=== PATIENT | female | born 1965 | race Caucasian/White ===

== ENCOUNTER 2018-06-20 19:56 | Emergency (ER) | payer MEDICAID ==
[~2018-06-20] VITALS: Ht 154.9 cm; Wt 48.0 kg
[2018-06-20 20:00] VITALS: BP 115/45
[2018-06-20] MEDS ORDERED: TRAM50TA2 PO (22:02)
[2018-06-20] MEDS ORDERED: IBUP-1985 PO (22:02)
== END 2018-06-20 22:13 | disposition home or self-care (01) ==
LOC: ER 19:56
DX: M25.532 Pain in left wrist (principal); Z88.6 Allergy status to analgesic agent; Z88.8 Allergy status to other drugs, medicaments and biological substances; W18.30XA Fall on same level, unspecified, initial encounter; Y93.51 Activity, roller skating (inline) and skateboarding; Y92.89 Other specified places as the place of occurrence of the external cause; Y99.8 Other external cause status
CPT/HCPCS: 29125; 73090; 99283

== ENCOUNTER 2018-06-23 10:29 | Emergency (ER) | payer MEDICAID ==
[~2018-06-23] VITALS: Ht 154.9 cm; Wt 58.6 kg
[~2018-06-23 10:29] MED LIST: IBUP-1985 PO; TRAM50TA2 PO
[2018-06-23 12:35] VITALS: BP 132/91
== END 2018-06-23 12:36 | disposition home or self-care (01) ==
LOC: ER 10:29
DX: S60.212A Contusion of left wrist, initial encounter (principal); Z88.8 Allergy status to other drugs, medicaments and biological substances; Z88.6 Allergy status to analgesic agent; Z79.899 Other long term (current) drug therapy; W18.39XA Other fall on same level, initial encounter; Y93.89 Activity, other specified; Y92.89 Other specified places as the place of occurrence of the external cause; Y99.8 Other external cause status
CPT/HCPCS: 29125; 73100; 99284

== ENCOUNTER 2018-06-30 09:06 | Outpatient (CLI) | payer MEDICAID ==
[2018-06-30 09:06] VITALS: BP 149/100
[~2018-06-30 09:06] MED LIST changes: -TRAM50TA2 PO
== END 2018-06-30 09:45 | disposition home or self-care (01) ==
LOC: ORTHO 09:06
PROVIDERS: ATTEND Nurse Practitioner Family
DX: S52.612A Displaced fracture of left ulna styloid process, initial encounter for closed fracture (principal); Z72.89 Other problems related to lifestyle; Z79.899 Other long term (current) drug therapy; Z88.8 Allergy status to other drugs, medicaments and biological substances; W19.XXXA Unspecified fall, initial encounter; Y93.89 Activity, other specified; Y92.89 Other specified places as the place of occurrence of the external cause; Y99.8 Other external cause status
CPT/HCPCS: 99213; A4590

== ENCOUNTER 2018-07-13 10:05 | Outpatient (CLI) | payer MEDICAID ==
[2018-07-13 09:51] VITALS: BP 144/95
== END 2018-07-13 10:24 | disposition home or self-care (01) ==
LOC: ORTHO 10:05
PROVIDERS: ATTEND Nurse Practitioner Family
DX: S52.592D Other fractures of lower end of left radius, subsequent encounter for closed fracture with routine healing (principal); S52.612D Displaced fracture of left ulna styloid process, subsequent encounter for closed fracture with routine healing; Z60.2 Problems related to living alone; Z88.5 Allergy status to narcotic agent; X58.XXXD Exposure to other specified factors, subsequent encounter
CPT/HCPCS: 73110; 99213; A4590

== ENCOUNTER 2018-07-16 18:27 | Emergency (ER) | payer MEDICAID ==
[~2018-07-16] VITALS: Ht 154.9 cm; Wt 55.5 kg
[2018-07-16] MEDS ORDERED: tranexamic acid 100mg/ml inj. TP ONE (19:00)
[2018-07-16] MEDS ORDERED: oxymetazoline 15 ML nasal spray NS ONE (19:00)
[2018-07-16] MEDS ORDERED: tranexamic acid 100mg/ml inj. IV ONE (19:25)
[2018-07-16] MEDS ORDERED: LORazepam 2 mg/ml vial IV ONE (19:30)
--- NOTE | 2018-07-16 19:50 | NUR ---
pt with stable vs and reports feeling a little better now that she has been given ativan iv. txa infusion of 550 mg started. boyfriend at bedside and is supportive and helpful and appropriate. awiating dr. islas to put afrin and txa in nostrils.
[2018-07-16] MEDS ORDERED: ondansetron/PF 4mg/2ml inj IM ONE (20:05)
[2018-07-16] MEDS ORDERED: ondansetron/PF 4mg/2ml inj IV ONE (20:10)
[2018-07-16 20:38] LABS: BASOPHILS % (AUTO) 0.1 % (0-1); EOSINOPHILS % (AUTO) 0.1 % (0-6); HEMATOCRIT 32.3 % (35.0-45.0); HEMOGLOBIN 11.1 g/dl (12.0-16.0); LYMPHOCYTES # (AUTO) 0.3 X10'3 (1.1-4.8); MEAN CORPUSCULAR HEMOGLOBIN 30.3 PG (27.0-31.0); MEAN CORPUSCULAR HGB CONC 34.3 g/dL (33.0-36.5); MEAN CORPUSCULAR VOLUME 88.2 FL (78-98); MEAN PLATELET VOLUME 6.5 FL (7.4-10.4); MONOCYTES # (AUTO) 0.6 X10'3 (0-0.9); MONOCYTES % (AUTO) 4.4 % (2-12); NEUTROPHILS # (AUTO) 12.5 X10'3 (1.8-7.7); NEUTROPHILS % (AUTO) 93.4 % (42-75); PLATELET COUNT 354 X10'3 (140-440); RED BLOOD COUNT 3.66 X10'6 (4.20-5.60); RED CELL DISTRIBUTION WIDTH 13.7 % (11.5-14.5); WHITE BLOOD COUNT 13.4 X10'3 (4.5-11.0)
[2018-07-16 20:39] LABS: ALANINE AMINOTRANSFERASE 47 U/L (12-78); ALBUMIN 3.7 G/DL (3.4-5.0); ALBUMIN/GLOBULIN RATIO 1.3 (1.1-1.5); ALKALINE PHOSPHATASE 64 IU/L (46-116); ANION GAP 10 (8-16); ASPARTATE AMINO TRANSFERASE 27 U/L (10-37); BILIRUBIN,TOTAL 0.4 MG/DL (0.1-1.0); BLOOD UREA NITROGEN 13 MG/DL (7-18); CALCIUM 9.2 MG/DL (8.5-10.1); CHLORIDE 98 MMOL/L (99-107); CREATININE 0.62 MG/DL (0.40-0.90); GLUCOSE 177 MG/DL (70-104); POTASSIUM 3.6 MMOL/L (3.5-5.1); SODIUM 133 MMOL/L (135-145); TOTAL CARBON DIOXIDE 24.8 MMOL/L (24-32); TOTAL PROTEIN 6.5 G/DL (6.4-8.2); eGFR > 90 ML/MIN
--- NOTE | 2018-07-16 21:47 | NUR ---
dr islas at bedside talking with pt about discharge and management of any bleeding thats may restart. pt's boyfriend at bedside during dc instruction. pt with stable vs.
[2018-07-16 21:48] VITALS: BP 104/72
== END 2018-07-16 22:19 | disposition home or self-care (01) ==
LOC: ER 18:27
DX: R04.0 Epistaxis (principal); Z88.8 Allergy status to other drugs, medicaments and biological substances
CPT/HCPCS: 36415; 80053; 85025; 93005; 96374; 96375; 99284; J2060; J2405

== ENCOUNTER 2018-07-30 09:46 | Outpatient (CLI) | payer MEDICAID | END 2018-07-30 10:32 | disposition home or self-care (01) | LOC: ORTHO 09:46 | PROVIDERS: ATTEND Nurse Practitioner Family | DX: S52.592D Other fractures of lower end of left radius, subsequent encounter for closed fracture with routine healing (principal); S52.612D Displaced fracture of left ulna styloid process, subsequent encounter for closed fracture with routine healing; M79.89 Other specified soft tissue disorders; Z88.6 Allergy status to analgesic agent; Z60.2 Problems related to living alone; W19.XXXD Unspecified fall, subsequent encounter | CPT/HCPCS: 73110; 99213; A4590 ==

== ENCOUNTER 2018-08-13 09:33 | Outpatient (CLI) | payer MEDICAID ==
[2018-08-13 09:35] VITALS: BP 126/72
== END 2018-08-13 10:15 | disposition home or self-care (01) ==
LOC: ORTHO 09:33
PROVIDERS: ATTEND Nurse Practitioner Family
DX: S52.592D Other fractures of lower end of left radius, subsequent encounter for closed fracture with routine healing (principal); Z88.6 Allergy status to analgesic agent; Z60.2 Problems related to living alone; W19.XXXD Unspecified fall, subsequent encounter
CPT/HCPCS: 73110; 99213

== ENCOUNTER 2018-09-02 14:43 | Outpatient (CLI) | payer MEDICAID | END 2018-09-02 15:48 | disposition home or self-care (01) | LOC: ORTHO 14:43 | PROVIDERS: ATTEND Orthopaedic Surgery | DX: S52.592D Other fractures of lower end of left radius, subsequent encounter for closed fracture with routine healing (principal); S52.612D Displaced fracture of left ulna styloid process, subsequent encounter for closed fracture with routine healing; F17.200 Nicotine dependence, unspecified, uncomplicated; X58.XXXD Exposure to other specified factors, subsequent encounter | CPT/HCPCS: 73110; 99213 ==

== ENCOUNTER 2018-09-30 13:05 | Outpatient (CLI) | payer MEDICAID ==
[2018-09-30 12:58] VITALS: BP 147/98
== END 2018-09-30 13:57 | disposition home or self-care (01) ==
LOC: ORTHO 13:05
PROVIDERS: ATTEND Orthopaedic Surgery
DX: S52.592D Other fractures of lower end of left radius, subsequent encounter for closed fracture with routine healing (principal); F17.200 Nicotine dependence, unspecified, uncomplicated; X58.XXXD Exposure to other specified factors, subsequent encounter
CPT/HCPCS: 73110; 99213

== ENCOUNTER 2019-02-25 11:53 | Outpatient (CLI) | payer MEDICAID | END 2019-02-25 13:45 | disposition home or self-care (01) | LOC: ORTHO 11:53 | PROVIDERS: ATTEND Orthopaedic Surgery | DX: S63.592D Other specified sprain of left wrist, subsequent encounter (principal); X58.XXXD Exposure to other specified factors, subsequent encounter | CPT/HCPCS: 73110; G0463 ==

== ENCOUNTER 2020-09-21 01:15 | Emergency (ER) | payer MEDICAID ==
[~2020-09-21] VITALS: Ht 157.5 cm; Wt 63.6 kg
[2020-09-21] MEDS ORDERED: aspirin 81mg tab.chew PO ONE (01:30)
[2020-09-21] MEDS ORDERED: nitroGLYCERIN 0.4mg SUBLingual tab SL PRN (01:30)
[2020-09-21] MEDS ORDERED: LORazepam 1 MG tablet PO ONE (01:35)
[2020-09-21 01:42] LABS: BASOPHILS % (AUTO) 0.7 % (0-1); EOSINOPHILS # (AUTO) 0.1 X10'3 (0-0.9); EOSINOPHILS % (AUTO) 1.4 % (0-6); HEMATOCRIT 42.2 % (35.0-45.0); HEMOGLOBIN 14.5 g/dl (12.0-16.0); LYMPHOCYTES # (AUTO) 0.8 X10'3 (1.1-4.8); LYMPHOCYTES % (AUTO) 15.5 % (21-51); MEAN CORPUSCULAR HEMOGLOBIN 32.2 PG (27.0-31.0); MEAN CORPUSCULAR HGB CONC 34.4 g/dL (33.0-36.5); MEAN CORPUSCULAR VOLUME 93.7 FL (78-98); MEAN PLATELET VOLUME 7.6 FL (7.4-10.4); MONOCYTES # (AUTO) 0.9 X10'3 (0-0.9); MONOCYTES % (AUTO) 17.1 % (2-12); NEUTROPHILS # (AUTO) 3.5 X10'3 (1.8-7.7); NEUTROPHILS % (AUTO) 65.3 % (42-75); PLATELET COUNT 137 X10'3 (140-440); RED BLOOD COUNT 4.51 X10'6 (4.20-5.60); RED CELL DISTRIBUTION WIDTH 12.7 % (11.5-14.5); WHITE BLOOD COUNT 5.4 X10'3 (4.5-11.0)
[2020-09-21 01:52] LABS: ALANINE AMINOTRANSFERASE 224 U/L (12-78); ALBUMIN 4.6 G/DL (3.4-5.0); ALBUMIN/GLOBULIN RATIO 1.3 (1.1-1.5); ALKALINE PHOSPHATASE 95 IU/L (46-116); ANION GAP 13 (8-16); ASPARTATE AMINO TRANSFERASE 264 U/L (10-37); BILIRUBIN,TOTAL 1.1 MG/DL (0.1-1.0); BLOOD UREA NITROGEN 9 MG/DL (7-18); BUN/CREATININE RATIO 18.4 (6.6-38.0); CALCIUM 9.1 MG/DL (8.5-10.1); CHLORIDE 89 MMOL/L (99-107); CREATININE 0.49 MG/DL (0.40-0.90); GLUCOSE 98 MG/DL (70-104); POTASSIUM 3.5 MMOL/L (3.5-5.1); SODIUM 127 MMOL/L (135-145); TOTAL CARBON DIOXIDE 24.7 MMOL/L (24-32); TOTAL PROTEIN 8.2 G/DL (6.4-8.2); eGFR > 90 ML/MIN
[2020-09-21 02:02] LABS: PLATELET ESTIMATE DECREASED; TOTAL CELLS COUNTED 100
[2020-09-21 06:29] VITALS: BP 149/71
== END 2020-09-21 06:43 | disposition home or self-care (01) ==
LOC: ER 01:16
DX: R07.89 Other chest pain (principal); M25.512 Pain in left shoulder; F41.9 Anxiety disorder, unspecified; Z98.890 Other specified postprocedural states; Z72.89 Other problems related to lifestyle; Z60.2 Problems related to living alone; Z88.8 Allergy status to other drugs, medicaments and biological substances; Z79.899 Other long term (current) drug therapy
CPT/HCPCS: 36415; 71045; 80053; 83880; 84484; 85007; 85025; 93005; 99285

== ENCOUNTER 2020-10-25 11:17 | Outpatient (CLI) | payer MEDICAID ==
[2020-10-25 12:03] LABS: BASOPHILS % (AUTO) 0.7 % (0-1); EOSINOPHILS # (AUTO) 0.1 X10'3 (0-0.9); EOSINOPHILS % (AUTO) 1.1 % (0-6); HEMATOCRIT 41.9 % (35.0-45.0); HEMOGLOBIN 14.2 g/dl (12.0-16.0); LYMPHOCYTES # (AUTO) 1.3 X10'3 (1.1-4.8); LYMPHOCYTES % (AUTO) 23.1 % (21-51); MEAN CORPUSCULAR HEMOGLOBIN 31.4 PG (27.0-31.0); MEAN CORPUSCULAR HGB CONC 33.9 g/dL (33.0-36.5); MEAN CORPUSCULAR VOLUME 92.9 FL (78-98); MEAN PLATELET VOLUME 8.1 FL (7.4-10.4); MONOCYTES # (AUTO) 0.6 X10'3 (0-0.9); MONOCYTES % (AUTO) 10.7 % (2-12); NEUTROPHILS # (AUTO) 3.5 X10'3 (1.8-7.7); NEUTROPHILS % (AUTO) 64.4 % (42-75); PLATELET COUNT 267 X10'3 (140-440); RED BLOOD COUNT 4.51 X10'6 (4.20-5.60); RED CELL DISTRIBUTION WIDTH 12.2 % (11.5-14.5); WHITE BLOOD COUNT 5.4 X10'3 (4.5-11.0)
[2020-10-25 13:17] LABS: PLATELET ESTIMATE NORMAL; TOTAL CELLS COUNTED 100
== END 2020-10-25 23:59 | disposition home or self-care (01) ==
LOC: LAB 11:17
PROVIDERS: ATTEND Nurse Practitioner
DX: Z00.01 Encounter for general adult medical examination with abnormal findings (principal); D69.6 Thrombocytopenia, unspecified; R74.8 Abnormal levels of other serum enzymes
CPT/HCPCS: 85007; 85025

== ENCOUNTER 2020-12-27 09:28 | Emergency (ER) | payer MEDICAID ==
[~2020-12-27] VITALS: Ht 157.5 cm; Wt 56.0 kg
--- NOTE | 2020-12-27 10:39 | NUR ---
pt was evaluated by Tony ALMAZAN at triage
[2020-12-27 10:48] LABS: BASOPHILS % (AUTO) 0.5 % (0-1); EOSINOPHILS % (AUTO) 0.1 % (0-6); HEMATOCRIT 40.8 % (35.0-45.0); LYMPHOCYTES # (AUTO) 0.3 X10'3 (1.1-4.8); LYMPHOCYTES % (AUTO) 5.2 % (21-51); MEAN CORPUSCULAR HEMOGLOBIN 31.1 PG (27.0-31.0); MEAN CORPUSCULAR HGB CONC 34.4 g/dL (33.0-36.5); MEAN CORPUSCULAR VOLUME 90.4 FL (78-98); MEAN PLATELET VOLUME 6.6 FL (7.4-10.4); MONOCYTES % (AUTO) 14.8 % (2-12); NEUTROPHILS # (AUTO) 5.2 X10'3 (1.8-7.7); NEUTROPHILS % (AUTO) 79.4 % (42-75); PLATELET COUNT 142 X10'3 (140-440); RED BLOOD COUNT 4.51 X10'6 (4.20-5.60); RED CELL DISTRIBUTION WIDTH 14.7 % (11.5-14.5); WHITE BLOOD COUNT 6.5 X10'3 (4.5-11.0)
[2020-12-27 10:55] LABS: PARTIAL THROMBOPLASTIN TIME 31 SECONDS (22-32)
[2020-12-27 10:56] LABS: ALANINE AMINOTRANSFERASE 346 U/L (12-78); ALBUMIN 4.7 G/DL (3.4-5.0); ALBUMIN/GLOBULIN RATIO 1.1 (1.1-1.5); ALKALINE PHOSPHATASE 432 IU/L (46-116); ANION GAP 11 (8-16); ASPARTATE AMINO TRANSFERASE 326 U/L (10-37); BILIRUBIN,TOTAL 0.7 MG/DL (0.1-1.0); BLOOD UREA NITROGEN 5 MG/DL (7-18); BUN/CREATININE RATIO 8.6 (6.6-38.0); CALCIUM 9.5 MG/DL (8.5-10.1); CHLORIDE 92 MMOL/L (99-107); CREATININE 0.58 MG/DL (0.40-0.90); GLUCOSE 217 MG/DL (70-104); POTASSIUM 3.8 MMOL/L (3.5-5.1); SODIUM 131 MMOL/L (135-145); TOTAL CARBON DIOXIDE 27.6 MMOL/L (24-32); TOTAL PROTEIN 8.9 G/DL (6.4-8.2); eGFR > 90 ML/MIN
[2020-12-27 11:55] LABS: LIPASE 95 U/L (73-393)
[2020-12-27] MEDS ORDERED: LORazepam 2 mg/ml vial IM ONE (15:25)
[2020-12-27] MEDS ORDERED: normal saline 1000ml 1,000 ML IV ONE (15:25)
[2020-12-27] MEDS ORDERED: iohexol 300mg/ml 100ml inj. ONE ×2 (15:34→17:03)
[2020-12-27 16:56] LABS: CLARITY,URINE CLEAR (Clear); COLOR,URINE STRAW (Yellow); GLUCOSE, URINE NEGATIVE (Neg); KETONES,URINE NEGATIVE (Neg); LEUKOCYTE ESTERASE ,URINE NEGATIVE (Neg); NITRITES, URINE NEGATIVE (Neg); OCCULT BLOOD,URINE TRACE-INTACT (Neg); PROTEIN,URINE NEGATIVE (Neg); UROBILINOGEN,URINE 0.2 E.U/dL (0.2-1.0)
[2020-12-27 16:57] LABS: UA COLLECTION TYPE CLN CATCH MIDSTREAM
[2020-12-27 17:07] LABS: URINE AMPHETAMINE SCREEN NEGATIVE (Neg); URINE BARBITUATE SCREEN NEGATIVE (Neg); URINE BENZODIAZEPINES SCREEN POSITIVE (Neg); URINE CANNABINOID SCREEN NEGATIVE (Neg); URINE COCAINE SCREEN NEGATIVE (Neg); URINE METHADONE SCREEN NEGATIVE (Neg); URINE OPIATE SCREEN NEGATIVE (Neg); URINE PHENCYCLIDINE SCREEN NEGATIVE (Neg)
[2020-12-27 17:14] LABS: MUCUS STRANDS FEW /LPF (Neg)
[2020-12-27 17:15] LABS: SQUAMOUS EPITHELIAL CELL,UR FEW /LPF (FEW)
[2020-12-27 17:16] LABS: BACTERIA,URINE FEW /HPF (Neg)
[2020-12-27 17:17] LABS: WBC,URINE 0-4 /HPF (0-4)
[2020-12-27 19:50] VITALS: BP 148/97
== END 2020-12-27 19:54 | disposition home or self-care (01) ==
LOC: ER 09:28
DX: K76.0 Fatty (change of) liver, not elsewhere classified (principal); R74.01 Elevation of levels of liver transaminase levels; R19.7 Diarrhea, unspecified; R10.13 Epigastric pain; R42 Dizziness and giddiness; R11.2 Nausea with vomiting, unspecified; H53.8 Other visual disturbances; F41.9 Anxiety disorder, unspecified; Z98.890 Other specified postprocedural states; Z72.89 Other problems related to lifestyle; Z60.2 Problems related to living alone; Z88.8 Allergy status to other drugs, medicaments and biological substances; Z79.899 Other long term (current) drug therapy; W11.XXXA Fall on and from ladder, initial encounter; Y93.89 Activity, other specified; Y92.89 Other specified places as the place of occurrence of the external cause; Y99.8 Other external cause status
CPT/HCPCS: 36415; 70450; 71045; 74177; 76700; 80053; 80305; 81001; 83690; 85025; 85610; 85730; 93005; 96360; 96361; 96372; 99285; J2060; J7030; Q9967

== ENCOUNTER 2020-12-29 00:35 | Emergency (ER) | payer MEDICAID ==
[~2020-12-29] VITALS: Ht 157.5 cm; Wt 61.3 kg
[2020-12-29] MEDS ORDERED: normal saline 1000ML IV soln IVB ONE (00:45)
[2020-12-29 01:15] LABS: BASOPHILS # (AUTO) 0.1 X10'3 (0-0.2); EOSINOPHILS # (AUTO) 0.1 X10'3 (0-0.9); EOSINOPHILS % (AUTO) 1.3 % (0-6); HEMATOCRIT 34.7 % (35.0-45.0); LYMPHOCYTES # (AUTO) 0.8 X10'3 (1.1-4.8); LYMPHOCYTES % (AUTO) 14.5 % (21-51); MEAN CORPUSCULAR HEMOGLOBIN 31.2 PG (27.0-31.0); MEAN CORPUSCULAR HGB CONC 34.5 g/dL (33.0-36.5); MEAN CORPUSCULAR VOLUME 90.4 FL (78-98); MEAN PLATELET VOLUME 6.7 FL (7.4-10.4); MONOCYTES % (AUTO) 19.2 % (2-12); NEUTROPHILS # (AUTO) 3.5 X10'3 (1.8-7.7); PLATELET COUNT 184 X10'3 (140-440); RED BLOOD COUNT 3.84 X10'6 (4.20-5.60); RED CELL DISTRIBUTION WIDTH 14.4 % (11.5-14.5); WHITE BLOOD COUNT 5.5 X10'3 (4.5-11.0)
[2020-12-29 01:32] LABS: ALANINE AMINOTRANSFERASE 259 U/L (12-78); ALBUMIN 3.7 G/DL (3.4-5.0); ALBUMIN/GLOBULIN RATIO 1.1 (1.1-1.5); ALKALINE PHOSPHATASE 268 IU/L (46-116); ANION GAP 10 (8-16); ASPARTATE AMINO TRANSFERASE 278 U/L (10-37); BILIRUBIN,TOTAL 0.8 MG/DL (0.1-1.0); BLOOD UREA NITROGEN 3 MG/DL (7-18); CALCIUM 8.5 MG/DL (8.5-10.1); CHLORIDE 92 MMOL/L (99-107); ETHANOL < 0.010 GM/DL (0.0-0.010); GLUCOSE 168 MG/DL (70-104); POTASSIUM 3.2 MMOL/L (3.5-5.1); SODIUM 128 MMOL/L (135-145); TOTAL CARBON DIOXIDE 26.1 MMOL/L (24-32); eGFR > 90 ML/MIN
[2020-12-29 02:01] LABS: BANDS% (MANUAL) 2 % (0-10); LYMPHOCYTES % (MANUAL) 18 % (21-51); NEUTROPHILS % (MANUAL) 65 % (42-75); TOTAL CELLS COUNTED 100
[2020-12-29 02:02] LABS: EOSINOPHILS % (MANUAL) 1 % (0-6); MONOCYTES % (MANUAL) 14 % (2-12); PLATELET ESTIMATE NORMAL
[2020-12-29] MEDS ORDERED: morphine 4 MG/ML inj SYRINge IV ONE (02:55)
[2020-12-29] MEDS ORDERED: ondansetron/PF 4mg/2ml inj IV ONE ×2 (02:55→04:40)
[2020-12-29 03:15] LABS: URINE BARBITUATE SCREEN NEGATIVE (Neg); URINE BENZODIAZEPINES SCREEN NEGATIVE (Neg); URINE CANNABINOID SCREEN NEGATIVE (Neg); URINE COCAINE SCREEN NEGATIVE (Neg); URINE METHADONE SCREEN NEGATIVE (Neg); URINE OPIATE SCREEN NEGATIVE (Neg); URINE PHENCYCLIDINE SCREEN NEGATIVE (Neg)
[2020-12-29] MEDS ORDERED: acetaminophen 325mg tablet PO PRN ×2 (03:20)
[2020-12-29] MEDS ORDERED: magnesium 4gm in 100ml NS 100 ML IV PRN (03:20)
[2020-12-29] MEDS ORDERED: bisacodyl 10mg suppository rectal RC PRN (03:20)
[2020-12-29] MEDS ORDERED: acetaminophen 650mg rectal suppository RC PRN (03:20)
[2020-12-29] MEDS ORDERED: magnesium 2GM in 50ml NS 50 ML IV PRN (03:20)
[2020-12-29] MEDS ORDERED: ondansetron 4mg rapidly disintigrating tab PO PRN (03:20)
[2020-12-29] MEDS ORDERED: magnesium hydroxide 30ml (MOM) UD suspension PO PRN (03:20)
[2020-12-29] MEDS ORDERED: magnesium Cl slow-release 64mg tablet PO PRN (03:20)
[2020-12-29] MEDS ORDERED: potassium Cl 40MEQ/1/2NS 520ml 520 ML IV PRN ×2 (03:20)
[2020-12-29] MEDS ORDERED: HYDROcodone/acetaminophen 5mg/325mg tablet PO PRN (03:20)
[2020-12-29] MEDS ORDERED: potassium Cl 20 mEq SR tablet PO PRN ×2 (03:20)
[2020-12-29] MEDS ORDERED: mag hydrox/Alum hydrox/simeth 30ml oral suspension PO PRN (03:20)
[2020-12-29] MEDS ORDERED: diphenhydrAMINE 50 mg/ml inj IV PRN (03:20)
[2020-12-29] MEDS ORDERED: diphenhydrAMINE 25mg capsule PO PRN (03:20)
[2020-12-29] MEDS ORDERED: NO HOME MEDS (03:27)
[2020-12-29 03:32] LABS: URINE AMPHETAMINE SCREEN NEGATIVE (Neg)
[2020-12-29] MEDS: normal saline 1000ml 1,000 ML IV SCH ×2 (03:37→12:19)
[2020-12-29 03:49] LABS: HEMOGLOBIN A1C 5.2 % (4.5-6.2)
[2020-12-29 03:50] LABS: CLARITY,URINE CLEAR (Clear); COLOR,URINE YELLOW (Yellow); GLUCOSE, URINE NEGATIVE (Neg); KETONES,URINE NEGATIVE (Neg); LEUKOCYTE ESTERASE ,URINE NEGATIVE (Neg); NITRITES, URINE NEGATIVE (Neg); UROBILINOGEN,URINE 0.2 E.U/dL (0.2-1.0)
[2020-12-29 03:55] LABS: PARTIAL THROMBOPLASTIN TIME 27 SECONDS (22-32)
[2020-12-29 04:04] LABS: OCCULT BLOOD,URINE SMALL (Neg); PROTEIN,URINE NEGATIVE (Neg)
[2020-12-29 04:08] LABS: UA COLLECTION TYPE CLN CATCH MIDSTREAM
[2020-12-29 04:10] LABS: BACTERIA,URINE NONE SEEN /HPF (Neg); SQUAMOUS EPITHELIAL CELL,UR NONE SEEN /LPF (FEW); WBC,URINE 0-4 /HPF (0-4)
[2020-12-29 04:13] LABS: D-DIMER 0.64 MG/L FEU (0-0.50)
[2020-12-29] MEDS ORDERED: HYDROcodone/acetaminophen 10/325mg tab PO ONE (04:40)
[2020-12-29 05:49] LABS: CREATINE KINASE 305 U/L (26-192); LACTATE DEHYDROGENASE 283 U/L (81-234); MAGNESIUM 1.7 MG/DL (1.5-2.4); PHOSPHORUS 3.3 MG/DL (2.3-4.5); TROPONIN I < 0.04 NG/ML (0.0-0.05)
[2020-12-29] MEDS: pantoprazole 40mg Tablet.DR PO SCH (07:30)
[2020-12-29] MEDS ORDERED: LORazepam 2 mg/ml vial IM SCH (08:00)
[2020-12-29] MEDS: docusate sod 100mg capsule PO SCH ×2 (08:00→21:14)
[2020-12-29] MEDS: K and/or MAG REPLACEMENT MC SCH ×2 (08:00→20:00)
[2020-12-29] MEDS: heparin, porcine 5000 units/ml vial SQ SCH ×2 (08:32→20:00)
[2020-12-29] MEDS ORDERED: LORazepam 2 mg/ml vial IV PRN (09:25)
[2020-12-29] MEDS: ondansetron/PF 4mg/2ml inj IV PRN (10:20)
[2020-12-29 10:29] LABS: ALBUMIN 3.9 G/DL (3.4-5.0); ANION GAP 10 (8-16); BLOOD UREA NITROGEN 3 MG/DL (7-18); BUN/CREATININE RATIO 6.1 (6.6-38.0); CALCIUM 8.2 MG/DL (8.5-10.1); CHLORIDE 95 MMOL/L (99-107); CREATININE 0.49 MG/DL (0.40-0.90); GLUCOSE 134 MG/DL (70-104); POTASSIUM 3.7 MMOL/L (3.5-5.1); SODIUM 130 MMOL/L (135-145); TOTAL CARBON DIOXIDE 25.4 MMOL/L (24-32); eGFR > 90 ML/MIN
[2020-12-29] MEDS: Potassium Cl inj 20 MEQ in normal saline 1000ml 990 ML IV SCH (15:15)
[2020-12-29] MEDS ORDERED: GADOTERATE MEGLUMINE 7.5 MMOL/15 ML VIAL IV ONE (16:35)
[2020-12-29] MEDS: morphine 2 MG/ML inj. syringe IV PRN (16:40)
[2020-12-29] MEDS ORDERED: temazepam 15mg capsule PO PRN (21:00)
--- NOTE | 2020-12-29 21:00 | NUR ---
Pt constantly repeating the same statements and asking the same questions. Pt consistently making comments about how she can't remember anything. Yet patient can remember asking me for pain medicine 45 minutes ago and that I hadn't brought it yet. After waiting a little while longer, pt flagged me as I walked by to ask if she had met me yet. Yet I had previously been in her room a dozen times. Upon leaving, pt stated "Don't forget about my pain medicine, Werner."
[2020-12-30] MEDS: normal saline 1000ml 1,000 ML IV SCH (00:18)
[2020-12-30] MEDS: morphine 2 MG/ML inj. syringe IV PRN (02:22)
[2020-12-30] MEDS: ondansetron/PF 4mg/2ml inj IV PRN (02:22)
--- NOTE | 2020-12-30 02:26 | NUR ---
patient taken to the restroom at this time, patient unsteady on her feet. pain and nausea meds requested see jul. patient back in bed resting.
--- NOTE | 2020-12-30 03:42 | NUR ---
Pt now sleeping with no complaints voiced or reported. + rise and fall of chest noted.
[2020-12-30] MEDS: Potassium Cl inj 20 MEQ in normal saline 1000ml 990 ML IV SCH (05:33)
[2020-12-30 07:15] VITALS: BP 137/80
[2020-12-30] MEDS: K and/or MAG REPLACEMENT MC SCH (07:30)
[2020-12-30] MEDS: docusate sod 100mg capsule PO SCH (07:30)
[2020-12-30] MEDS: pantoprazole 40mg Tablet.DR PO SCH (07:30)
[2020-12-30] MEDS: heparin, porcine 5000 units/ml vial SQ SCH (07:31)
[2020-12-30] MEDS ORDERED: HYDROcodone/acetaminophen 5mg/325mg tablet PO PRN (08:40)
[2020-12-30] MEDS ORDERED: levetiracetam 250mg tablet PO SCH (08:40)
[2020-12-30 09:32] LABS: ALANINE AMINOTRANSFERASE 220 U/L (12-78); ALBUMIN 3.8 G/DL (3.4-5.0); ALBUMIN/GLOBULIN RATIO 1.1 (1.1-1.5); ALKALINE PHOSPHATASE 224 IU/L (46-116); ANION GAP 6 (8-16); ASPARTATE AMINO TRANSFERASE 148 U/L (10-37); BILIRUBIN,TOTAL 0.6 MG/DL (0.1-1.0); BLOOD UREA NITROGEN 2 MG/DL (7-18); BUN/CREATININE RATIO 4.1 (6.6-38.0); CALCIUM 8.9 MG/DL (8.5-10.1); CHLORIDE 103 MMOL/L (99-107); CHOL/HDL RATIO 1.8 (0.00-4.99); CHOLESTEROL 188 MG/DL (0-200); CREATININE 0.49 MG/DL (0.40-0.90); GLUCOSE 130 MG/DL (70-104); HDL CHOLESTEROL 105 MG/DL (35-60); LDL CHOLESTEROL 61 MG/DL (50-100); MAGNESIUM 2.2 MG/DL (1.5-2.4); POTASSIUM 3.4 MMOL/L (3.5-5.1); SODIUM 140 MMOL/L (135-145); TOTAL CARBON DIOXIDE 30.8 MMOL/L (24-32); TOTAL PROTEIN 7.4 G/DL (6.4-8.2); TRIGLYCERIDES 33 MG/DL (20-135); eGFR > 90 ML/MIN
[2020-12-30 09:46] LABS: BASOPHILS % (AUTO) 0.5 % (0-1); EOSINOPHILS # (AUTO) 0.1 X10'3 (0-0.9); EOSINOPHILS % (AUTO) 0.9 % (0-6); HEMATOCRIT 36.2 % (35.0-45.0); HEMOGLOBIN 12.3 g/dl (12.0-16.0); LYMPHOCYTES # (AUTO) 0.6 X10'3 (1.1-4.8); LYMPHOCYTES % (AUTO) 9.7 % (21-51); MEAN CORPUSCULAR HEMOGLOBIN 31.7 PG (27.0-31.0); MEAN CORPUSCULAR VOLUME 93.2 FL (78-98); MEAN PLATELET VOLUME 6.8 FL (7.4-10.4); MONOCYTES # (AUTO) 1.1 X10'3 (0-0.9); MONOCYTES % (AUTO) 17.6 % (2-12); NEUTROPHILS # (AUTO) 4.6 X10'3 (1.8-7.7); NEUTROPHILS % (AUTO) 71.3 % (42-75); PLATELET COUNT 213 X10'3 (140-440); RED BLOOD COUNT 3.88 X10'6 (4.20-5.60); WHITE BLOOD COUNT 6.4 X10'3 (4.5-11.0)
[2020-12-30] MEDS ORDERED: LEVE250T PO (10:47)
--- NOTE | 2020-12-31 11:21 | NUR ---
PT CALLED STATING THAT HER RX FOR KEPPRA WAS CALLED INTO [facility]. PT STATES THAT THE PHARMACY IS CLOSED TODAY AND SHE NEEDS HER MEDICATION. ALLAN ALMAZAN NOTIFIED AND APPROVED THAT RX BE CALLED INTO [facility] ON [address]. PER REQUESTED BY PT, KEPPRA 250MG, 500MG PO BID, DISPENCE 60 WAS CALLED TO [facility] ON [address], [place].
== END 2020-12-30 11:59 | disposition home or self-care (01) ==
LOC: ER 00:36 → UNDOADMIN 03:24 → ED HOLD 03:24 → UNDODISIN 12-30 11:56
DX: R56.9 Unspecified convulsions (principal); E87.1 Hypo-osmolality and hyponatremia; E87.6 Hypokalemia; R79.89 Other specified abnormal findings of blood chemistry; F41.9 Anxiety disorder, unspecified; Z88.5 Allergy status to narcotic agent; Z79.899 Other long term (current) drug therapy
CPT/HCPCS: 36415; 70450; 70553; 71045; 72040; 74182; 80048; 80053; 80061; 80305; 80320; 81001; 82140; 82550; 82977; 83036; 83615; 83735; 83880; 84100; 84443; 84484; 85007; 85025; 85379; 85610; 85730; 93005; 95816; 96361; 96372; 96374; 96375; 96376; 99285; A9575; J1644; J2270; J2405; J3480; J7030; G0378

== ENCOUNTER 2021-12-31 20:00 | Inpatient (IN) | payer MEDICAID ==
[~2021-12-31] VITALS: Ht 157.5 cm; Wt 61.4 kg
[~2021-12-31 20:00] MED LIST changes: -IBUP-1985 PO; +LEVE250T PO
[2021-12-31 21:56] LABS: BASOPHILS % (AUTO) 0.5 % (0-1); EOSINOPHILS % (AUTO) 0.4 % (0-6); HEMATOCRIT 28.9 % (35.0-45.0); HEMOGLOBIN 9.7 g/dl (12.0-16.0); LYMPHOCYTES # (AUTO) 0.6 X10'3 (1.1-4.8); LYMPHOCYTES % (AUTO) 6.7 % (21-51); MEAN CORPUSCULAR HEMOGLOBIN 30.6 PG (27.0-31.0); MEAN CORPUSCULAR HGB CONC 33.7 g/dL (33.0-36.5); MEAN CORPUSCULAR VOLUME 90.7 FL (78-98); MEAN PLATELET VOLUME 6.4 FL (7.4-10.4); MONOCYTES # (AUTO) 1.5 X10'3 (0-0.9); MONOCYTES % (AUTO) 17.5 % (2-12); NEUTROPHILS # (AUTO) 6.5 X10'3 (1.8-7.7); NEUTROPHILS % (AUTO) 74.9 % (42-75); PLATELET COUNT 420 X10'3 (140-440); RED BLOOD COUNT 3.18 X10'6 (4.20-5.60); RED CELL DISTRIBUTION WIDTH 16.2 % (11.5-14.5); WHITE BLOOD COUNT 8.7 X10'3 (4.5-11.0)
[2021-12-31 22:32] LABS: ALANINE AMINOTRANSFERASE 27 U/L (12-78); ALBUMIN 3.4 G/DL (3.4-5.0); ALBUMIN/GLOBULIN RATIO 0.9 (1.1-1.5); ALKALINE PHOSPHATASE 130 IU/L (46-116); ANION GAP 8 (8-16); ASPARTATE AMINO TRANSFERASE 20 U/L (10-37); BILIRUBIN,TOTAL 0.6 MG/DL (0.1-1.0); BLOOD UREA NITROGEN 6 MG/DL (7-18); CALCIUM 8.8 MG/DL (8.5-10.1); CHLORIDE 95 MMOL/L (99-107); GLUCOSE 115 MG/DL (70-104); SODIUM 127 MMOL/L (135-145); TOTAL CARBON DIOXIDE 23.9 MMOL/L (24-32); TOTAL PROTEIN 7.3 G/DL (6.4-8.2); eGFR > 90 ML/MIN
[2021-12-31 22:50] LABS: ANISOCYTOSIS 1+; PLATELET ESTIMATE NORMAL; TOTAL CELLS COUNTED 100
[2021-12-31 22:51] LABS: HYPOCHROMASIA 1+
[2021-12-31] MEDS ORDERED: vancomycin/NS 1 GM ADD-VANTAGE 250 ML IV ONE (23:35)
[2021-12-31] MEDS ORDERED: iohexol 350MG/ML 100ml bottle IV ONE (23:42)
[2022-01-01] MEDS ORDERED: morphine 2 MG/ML inj. syringe IV ONE (00:30)
[2022-01-01] MEDS ORDERED: LORazepam 1 MG tablet PO ONE (00:30)
[2022-01-01] MEDS ORDERED: morphine 2 MG/ML inj. syringe IV PRN ×2 (00:40→10:40)
[2022-01-01] MEDS ORDERED: ondansetron/PF 4mg/2ml inj IV PRN (00:40)
[2022-01-01] MEDS ORDERED: ALPR1TAB2 PO (00:57)
[2022-01-01] MEDS: normal saline 1000ml 1,000 ML IV SCH ×2 (02:06→11:01)
[2022-01-01] MEDS: morphine 2 MG/ML inj. syringe IV PRN ×2 (03:45→07:50)
--- NOTE | 2022-01-01 05:40 | NUR ---
RECEIVED PT FROM ER VIA [facility] FOLLOWING VERBAL REPORT FROM VANESSA. ASSUMED CARE OF PT
--- NOTE | 2022-01-01 06:21 | NUR ---
Patient in room PCU 3013. I have received report from Kamila WASHINGTON and had the opportunity to ask questions and assume patient care.Patient is resting in bed in no acute distress.
--- NOTE | 2022-01-01 06:26 | NUR ---
Problems reprioritized. Patient report given, questions answered & plan of care reviewed with KIRSTEN.
[2022-01-01 07:00] VITALS: BP 105/53
[2022-01-01 07:49] LABS: BASOPHILS % (AUTO) 0.4 % (0-1); EOSINOPHILS % (AUTO) 0.6 % (0-6); HEMATOCRIT 28.1 % (35.0-45.0); HEMOGLOBIN 9.3 g/dl (12.0-16.0); LYMPHOCYTES # (AUTO) 0.4 X10'3 (1.1-4.8); LYMPHOCYTES % (AUTO) 5.4 % (21-51); MEAN CORPUSCULAR HEMOGLOBIN 30.2 PG (27.0-31.0); MEAN CORPUSCULAR HGB CONC 33.2 g/dL (33.0-36.5); MEAN CORPUSCULAR VOLUME 91.1 FL (78-98); MEAN PLATELET VOLUME 6.5 FL (7.4-10.4); MONOCYTES # (AUTO) 1.4 X10'3 (0-0.9); MONOCYTES % (AUTO) 17.6 % (2-12); NEUTROPHILS # (AUTO) 5.9 X10'3 (1.8-7.7); PLATELET COUNT 410 X10'3 (140-440); RED BLOOD COUNT 3.09 X10'6 (4.20-5.60); RED CELL DISTRIBUTION WIDTH 16.3 % (11.5-14.5); WHITE BLOOD COUNT 7.7 X10'3 (4.5-11.0)
[2022-01-01 07:59] LABS: ALANINE AMINOTRANSFERASE 23 U/L (12-78); ALBUMIN/GLOBULIN RATIO 0.9 (1.1-1.5); ALKALINE PHOSPHATASE 110 IU/L (46-116); ANION GAP 10 (8-16); ASPARTATE AMINO TRANSFERASE 16 U/L (10-37); BILIRUBIN,TOTAL 0.6 MG/DL (0.1-1.0); BLOOD UREA NITROGEN 4 MG/DL (7-18); CALCIUM 8.6 MG/DL (8.5-10.1); CHLORIDE 105 MMOL/L (99-107); GLUCOSE 111 MG/DL (70-104); POTASSIUM 3.7 MMOL/L (3.5-5.1); SODIUM 138 MMOL/L (135-145); TOTAL CARBON DIOXIDE 23.2 MMOL/L (24-32); TOTAL PROTEIN 6.5 G/DL (6.4-8.2); eGFR > 90 ML/MIN
[2022-01-01 08:17] LABS: ANISOCYTOSIS 1+; PLATELET ESTIMATE NORMAL; TOTAL CELLS COUNTED 100
[2022-01-01 08:18] LABS: HYPOCHROMASIA 1+; POLYCHROMASIA FEW
[2022-01-01 10:00] VITALS: BP 126/63
[2022-01-01] MEDS ORDERED: HYDROcodone/acetaminophen 10/325mg tab PO PRN (10:40)
[2022-01-01] MEDS ORDERED: HYDROmorphone 2mg tablet PO PRN (10:40)
[2022-01-01] MEDS: HYDROmorphone 1 mg/ml syringe IV PRN ×4 (11:01→23:57)
[2022-01-01] MEDS: cephalexin 500mg capsule PO SCH ×2 (11:49→16:08)
[2022-01-01] MEDS ORDERED: ALPR1TAB7 PO (13:35)
--- NOTE | 2022-01-01 14:50 | NUR ---
Page Sent promotional table spacer PAGER ID: [phone] MESSAGE: [id number] [place]. PT would still like drain placed. Dr. Hansen is not going to do anything at this point since her surgeon will take care of it. Are we keeping this patient or DC her and can you order the drain? [phone]
[2022-01-01 15:00] VITALS: BP 135/69
[2022-01-01] MEDS: ceFAZolin/D5W- 1GM premix 50 ML IV SCH ×2 (16:08→23:57)
--- NOTE | 2022-01-01 17:52 | NUR ---
Page Sent promotional table spacer PAGER ID: [phone] MESSAGE: [phone] [place]. CASTRO the patient's surgeon is having her transferred down to the [facility] in [place] as soon as there is a bed. [email or web address] (151 character message out of a maximum of [phone])
[2022-01-01 18:00] VITALS: BP 117/54
--- NOTE | 2022-01-01 18:35 | NUR ---
Problems reprioritized. Patient report given, questions answered & plan of care reviewed with Rylee WASHINGTON
[2022-01-01] MEDS ORDERED: ALPRAZolam 0.5mg tablet PO PRN (21:00)
[2022-01-01 22:00] VITALS: BP 145/75
[2022-01-02] MEDS: normal saline 1000ml 1,000 ML IV SCH (00:02)
[2022-01-02 02:00] VITALS: BP 151/47
--- NOTE | 2022-01-02 02:45 | NUR ---
Sonia from transport center called. Informed this RN of bed availability at [facility]. Patient will be accepted to Room 347 Bed 2. Accepting Doctor is Dr. Gonzalez. Number to call report to RN is [phone]
--- NOTE | 2022-01-02 03:25 | NUR ---
Spoke to Ehsan from [facility]. ETA to [facility] is [address] [facility] is 0600 am.
--- NOTE | 2022-01-02 03:27 | NUR ---
Sherrill from transport center called. Informed her of ETA.
--- NOTE | 2022-01-02 03:30 | NUR ---
Report called to FELIX Wood at [facility]. All questions answered & plan of care reviewed.
[2022-01-02] MEDS: HYDROmorphone 1 mg/ml syringe IV PRN (05:06)
--- NOTE | 2022-01-02 05:15 | NUR ---
Reported off to RN or [facility]. All belongings sent with patient. IV intact. PRN pain medication administered prior to transfer per patient request as ordered.
== END 2022-01-02 05:30 | disposition short-term general hospital (02) | DRG 813 ==
LOC: ER 20:01 → ED HOLD 01-01 00:42 → PCU 3S 01-01 05:42
PROVIDERS: ADMIT Internal Medicine; ATTEND Internal Medicine
DX: L76.34 Postprocedural seroma of skin and subcutaneous tissue following other procedure (principal); F41.9 Anxiety disorder, unspecified; L76.22 Postprocedural hemorrhage of skin and subcutaneous tissue following other procedure; N64.89 Other specified disorders of breast; Z20.822 Contact with and (suspected) exposure to COVID-19; Y83.8 Other surgical procedures as the cause of abnormal reaction of the patient, or of later complication, without mention of misadventure at the time of the procedure; Z60.2 Problems related to living alone; G47.00 Insomnia, unspecified; M35.00 Sjogren syndrome, unspecified; N64.4 Mastodynia; Z91.040 Latex allergy status; Z88.8 Allergy status to other drugs, medicaments and biological substances; Y92.89 Other specified places as the place of occurrence of the external cause
CPT/HCPCS: 36415; 71045; 71260; 80053; 83605; 84145; 85007; 85025; 87040; 87081; 87811; 99285; A6253; A6449; G0378; J0690; J1170; J2270; J3370; J7030; Q9967

== ENCOUNTER 2023-02-18 13:10 | Emergency (ER) | payer MEDICAID ==
[~2023-02-18] VITALS: Ht 157.5 cm; Wt 61.0 kg
[~2023-02-18 13:10] MED LIST changes: +ALPR1TAB7 PO; -LEVE250T PO
[2023-02-18 13:13] VITALS: BP 138/80; PULSE 100; RESP 16; O2SAT 95
[2023-02-18] MEDS ORDERED: NAPR-56 PO (15:40)
[2023-02-18 16:00] VITALS: TEMP 97.8
== END 2023-02-18 16:01 | disposition home or self-care (01) ==
LOC: ER 13:11
DX: M25.511 Pain in right shoulder (principal); M25.562 Pain in left knee; Z98.82 Breast implant status; Z98.890 Other specified postprocedural states; Z88.8 Allergy status to other drugs, medicaments and biological substances; Z91.040 Latex allergy status; W19.XXXA Unspecified fall, initial encounter; Y93.89 Activity, other specified; Y92.89 Other specified places as the place of occurrence of the external cause; Y99.8 Other external cause status
CPT/HCPCS: 73030; 73564; 99284

== ENCOUNTER 2024-01-07 17:04 | Emergency (ER) | payer MEDICAID, OTHER ==
[~2024-01-07] VITALS: Ht 157.5 cm; Wt 65.8 kg
[2024-01-07] MEDS: ketorolac trometh 15mg/ml vial 15 MG/ML ML IM ONE (20:06)
[2024-01-07 20:23] VITALS: BP 124/64; PULSE 70; RESP 16; TEMP 97.6; O2SAT 98
== END 2024-01-07 20:26 | disposition home or self-care (01) ==
LOC: ER 17:05
DX: S09.90XA Unspecified injury of head, initial encounter (principal); S19.9XXA Unspecified injury of neck, initial encounter; F41.9 Anxiety disorder, unspecified; Z88.0 Allergy status to penicillin; Z91.040 Latex allergy status; Z79.899 Other long term (current) drug therapy; V89.2XXA Person injured in unspecified motor-vehicle accident, traffic, initial encounter; Y93.89 Activity, other specified; Y92.89 Other specified places as the place of occurrence of the external cause; Y99.8 Other external cause status
CPT/HCPCS: 70450; 72125; 73564; 96372; 99285; J1885

== ENCOUNTER 2024-03-26 08:10 | Emergency (ER) | payer BC, OTHER ==
[~2024-03-26] VITALS: Ht 157.5 cm; Wt 69.7 kg
[2024-03-26 08:19] VITALS: BP 153/102; PULSE 78; RESP 16; O2SAT 99
[2024-03-26] MEDS ORDERED: MELO-102 PO (10:40)
[2024-03-26 10:41] VITALS: TEMP 97.5
== END 2024-03-26 10:43 | disposition home or self-care (01) ==
LOC: ER 08:10
DX: S62.642A Nondisplaced fracture of proximal phalanx of right middle finger, initial encounter for closed fracture (principal); G56.01 Carpal tunnel syndrome, right upper limb; Z88.0 Allergy status to penicillin; Z91.040 Latex allergy status; Z79.899 Other long term (current) drug therapy; X58.XXXA Exposure to other specified factors, initial encounter; Y93.89 Activity, other specified; Y92.89 Other specified places as the place of occurrence of the external cause; Y99.8 Other external cause status
CPT/HCPCS: 73130; 99283

== ENCOUNTER 2024-04-07 12:26 | Outpatient (CLI) | payer BC ==
[~2024-04-07 12:26] MED LIST changes: +MELO-102 PO
== END 2024-04-07 23:59 | disposition home or self-care (01) ==
LOC: MRI02 12:26
PROVIDERS: ATTEND Pediatrics Sports Medicine
DX: S62.612D Displaced fracture of proximal phalanx of right middle finger, subsequent encounter for fracture with routine healing (principal); G56.00 Carpal tunnel syndrome, unspecified upper limb; M79.641 Pain in right hand; X58.XXXD Exposure to other specified factors, subsequent encounter
CPT/HCPCS: 73218